=== PATIENT | male | born 1970 | race Caucasian/White ===

== ENCOUNTER 2021-12-14 16:55 | Emergency (ER) | payer BC ==
[~2021-12-14] VITALS: Ht 182.9 cm; Wt 109.0 kg
[2021-12-14] MEDS ORDERED: ASPIRIN CHEWABLE 81 MG TABLET. ONE (17:11)
[2021-12-14] MEDS ORDERED: ONDANSETRON PF 4 MG/2 ML VIAL. IVP ONE (17:15)
[2021-12-14] MEDS ORDERED: MORPHINE SULFATE 2 MG/ML DISP.SYRIN. IV ONE (17:15)
--- NOTE | 2021-12-14 17:16 | PHYS DOC ---
General Adult EDM: Chief Complaint: CHEST PAIN HPI: HPI: 51-year-old male presents with chest pain. Patient has not wanted, complex cardiac history. He has had numerous stents, numerous heart attacks, bypass, and is trying to get on the heart transplant list at . He presents today because he started to have chest pain that started 30 minutes ago. It does from the central chest radiating to his left shoulder and is a sharp stabbing pain. He does state that it feels similar to previous heart attacks. He has all of his care at . The patient took 3 nitroglycerin prior to arrival with no relief. (KATHRYN WELLINGTON DO) Review of Systems: Review of Systems: Constitutional: Denies fever or chills Eyes: Denies change in visual acuity HENT: Denies nasal congestion or sore throat Respiratory: Denies cough or shortness of breath Cardiovascular: Chest pain GI: Denies abdominal pain, nausea, vomiting, bloody stools or diarrhea : Denies dysuria Musculoskeletal: Denies back pain or joint pain Integument: Denies rash Neurologic: Denies headache, focal weakness or sensory changes Endocrine: Denies polyuria or polydipsia Lymphatic: Denies swollen glands Psychiatric: Denies depression or anxiety (KATHRYN WELLINGTON DO) Current Medications: Current Meds: Current Medications Medications (Trade) Dose Ordered Sig/Alethea Start Time Stop Time Status Last Admin Dose Admin Aspirin (Aspirin Chewable) 81 mg STK-MED ONCE 12/14/21 17:11 12/14/21 17:11 DC (KATHRYN WELLINGTON DO) Physical Exam: PE: Constitutional: Well developed, well nourished, obese, no acute distress, non- toxic appearance. [] HENT: Normocephalic, atraumatic, bilateral external ears normal, oropharynx moist, no oral exudates, nose normal. [] Eyes: PERRLA, EOMI, conjunctiva normal, no discharge. [] Neck: Normal range of motion, no tenderness, supple, no stridor. [] Cardiovascular: Heart rate regular rhythm, no murmur [] Lungs & Thorax: Bilateral breath sounds clear to auscultation [] Abdomen: Bowel sounds normal, soft, no tenderness, no masses, no pulsatile masses. [] Skin: Warm, dry, no erythema, no rash. [] Back: No tenderness, no CVA tenderness. [] Extremities: No tenderness, no cyanosis, no clubbing, ROM intact, no edema. [] Neurologic: Alert and oriented X 3, normal motor function, normal sensory function, no focal deficits noted. [] Psychologic: Affect normal, judgement normal, mood concerned. [] (KATHRYN WELLINGTON DO) EKG: EKG: [] (KATHRYN WELLINGTON DO) Radiology/Procedures: Radiology/Procedures: [] (KATHRYN WELLINGTON DO) Heart Score: C/O Chest Pain: Yes HEART Score for Chest Pain: HEART Score for Chest Pain Response (Comments) Value History Moderately Suspicious 1 ECG Nonspecific Repolarizatio 1 Age >45 - < 65 1 Risk Factors >3 Risk Factors or Hx CAD 2 Total 5 Risk Factors: Risk Factors: DM, Current or recent (<one month) smoker, HTN, HLP, family history of CAD, obesity. Risk Scores: Score 0 - 3: 2.5% MACE over next 6 weeks - Discharge Home Score 4 - 6: 20.3% MACE over next 6 weeks - Admit for Clinical Observation Score 7 - 10: 72.7% MACE over next 6 weeks - Early Invasive Strategies (KATHRYN WELLINGTON DO) Course & Med Decision Making: Course & Med Decision Making Pertinent Labs and Imaging studies reviewed. (See chart for details) The patient has factor V. He is fully anticoagulated with Brilinta and Eliquis. I will not give him aspirin. EKG shows no ST elevation or depression. His heart score is a 5. Given his extensive history, even if all of his labs are normal the patient should be admitted for observation at a minimum. I will contact . I talked with the transfer center and they do not have any telemetry beds. The patient's labs are still pending. If he needs to go to the [facility] or ICU, they may have space. I am signing patient out to my colleague Dr. Aparicio at 1800. [] (KATHRYN WELLINGTON DO) Course & Med Decision Making Patient care handed off to me at checkout pending chest pain work-up and disposition. Patient awake alert and oriented in no acute distress with normal heart rate, normal blood pressure and no respiratory distress. Initial laboratory analysis notable for slightly elevated D-dimer. Initial EKG with a rate of 62, QRS of 96, QTc of 400, paced, does not meet STEMI criteria. Initial troponin normal. Chest x-ray and CT of the chest not concerning. Patient allergic to contrast so PE study deferred. Upon reassessment to repeat EKG, r epeat troponin and pain assessment patient stated that he was feeling well and just wanted to sign out AMA and go home and would go to either tonight or tomorrow as this is where his cardiology team is. Had a long discussion with patient and family witnessed by ED nurse discussing the risks of this including but not limited to increased pain, nausea, CO, CVA, aortic pathology, syncope and falls, short-term or long-term disability and . Both patient and patient's verbalized understanding of these risks and wanted to sign out AMA. Advised to come back to the emergency department immediately with new or concerning symptoms that we discussed and also follow-up on Thursday morning first thing with his cardiology team if he does not return to an ED. (NARA APARICIO MD) Dragon Disclaimer: Dragon Disclaimer: This electronic medical record was generated, in whole or in part, using a voice recognition dictation system. (KATHRYN WELLINGTON DO) Departure Departure: Impression: Primary Impression: Chest pain Additional Impression: Elevated d-dimer Disposition: HOME / SELF CARE / HOMELESS Condition: STABLE Referrals: PCP,UNKNOWN (PCP) JACKY ROLLINS MD Patient Instructions: Chest Pain (Nonspecific) Additional Instructions: Thank you for coming into the emergency department [facility] and allowing us to take care of you. Please read the attached information very carefully to go over some of the things we discussed. Your initial EKG and troponin was not suggestive of CO at this time. All of your laboratory analysis initially was unremarkable except for a slightly elevated D-dimer. Your chest x-ray and CT of your chest were unremarkable. Given your history, it was recommended that she stay in the hospital for continued evaluation, treatment and disposition to inpatient care. You decided to sign out AGAINST MEDICAL ADVICE. We discussed the risks of this including significant pain, nausea, worsening of what ever condition is causing your chest pain at this time, heart attack, stroke, blood clot, short-term or long-term disability, fainting and falls injuring her head on blood thinners, and . We discussed this in front of your family and both of you were in agreement, that she wanted to leave AGAINST MEDICAL ADVICE and would follow-up with your doctors as soon as you can. 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 Please return to the nearest emergency department immediately with any of the new or concerning symptoms that we discussed. KATHRYN WELLINGTON DO Dec 14, 2021 17:16 NARA APARICIO MD Dec 14, 2021 19:37
--- NOTE | 2021-12-14 17:25 | EKG ---
[address] [address] Test Date: 2021-12-14 Test Time: 17:02:50 Pat Name: JADIEL CARABALLO Department: Room: Gender: M Trap Operator: DUNCAN : 1970 Requested By: KATHRYN WELLINGTON Order Number: [id number] Reading MD: Sylvester Westbrook MD Measurements Intervals [place] Rate: 62 P: 44 IA: 150 QRS: -69 QRSD: 96 T: -21 QT: 392 QTc: 400 Interpretive Statements SINUS RHYTHM NON-SPECIFIC ST/T CHANGES Electronically Signed On 12-16-2021 10:14:05 SENIOR COST ACCOUNTANT by Sylvester Westbrook MD
--- NOTE | 2021-12-14 17:40 | RAD ---
EXAMINATION: Chest radiograph. VIEWS: 2 images single AP view of the chest COMPARISON: None INDICATION:51 years, Male, chest pain. FINDINGS: Left chest single lead cardiac pacing device appears in normal position. Median sternotomy wires are intact. Post CABG changes. Heart size and pulmonary vasculature is within normal limits. No focal con solidation. No pleural effusion or pneumothorax. No acute osseous process. IMPRESSION: No acute cardiopulmonary process. Electronically signed by: Kenny Paiz DO (12/14/2021 5:38 PM) [facility]
[2021-12-14 17:45] LABS: BASO # 0.1 x10^3/uL (0.0-0.2); BASO % 1 % (0-3); EOS # 0.3 x10^3/uL (0.0-0.7); EOS % 5 % (0-3); HEMATOCRIT 44.9 % (39.0-53.0); HEMOGLOBIN 14.7 g/dL (13.0-17.5); LYMPH # 1.9 x10^3/uL (1.0-4.8); LYMPH % 31 % (24-48); MEAN CORPUSCULAR HEMOGLOBIN 27 pg (25-35); MEAN CORPUSCULAR HGB CONC 33 g/dL (31-37); MEAN CORPUSCULAR VOLUME 83 fL (79-100); MONO # 0.8 x10^3/uL (0.0-1.1); MONO % 12 % (0-9); NEUT # 3.2 x10^3uL (1.8-7.7); NEUT % 51 % (31-73); PLATELET COUNT 198 x10^3/uL (140-400); RED BLOOD COUNT 5.42 x10^6/uL (4.30-5.70); RED CELL DISTRIBUTION WIDTH 13.9 % (11.5-14.5); WHITE BLOOD COUNT 6.3 x10^3/uL (4.0-11.0)
[2021-12-14] MEDS ORDERED: PROMETHAZINE 25 MG TABLET. PO ONE (17:45)
[2021-12-14 17:50] LABS: GFR 78.8; POTASSIUM 4.3 mmol/L (3.5-5.1)
[2021-12-14 17:56] LABS: ALBUMIN 4.2 g/dL (3.4-5.0); ALBUMIN/GLOBULIN RATIO 1.3 (1.0-1.7); TOTAL BILIRUBIN 0.7 mg/dL (0.2-1.0); TOTAL PROTEIN 7.4 g/dL (6.4-8.2)
[2021-12-14] MEDS ORDERED: MORPHINE SULFATE 4 MG/ML DISP.SYRIN. IV ONE (18:30)
[2021-12-14] MEDS ORDERED: MORPHINE SULFATE 4 MG/ML DISP.SYRIN. ONE (18:35)
[2021-12-14 19:25] VITALS: BP 137/98
--- NOTE | 2021-12-14 19:26 | RAD ---
Exam Date: 12/14/2021 6:[address] THORAX WO Indication: Reason: CP, allergic to contrast, Thoracic aorta? / Spl. Instructions: / History: . TECHNIQUE: CT scan of the chest was performed without intravenous contrast. One or more of the [facility] dose reduction techniques were utilized: *Automated exposure control (AEC) *Adjustment of mA and/or kV according to patient size *Use of iterative reconstruction technique *CT scan done according to ALARA, or ALARA/IMAGE GENTLY FINDINGS: The central airways are patent. There is no focal consolidation, pleural effusion or pneumothorax. Calcified granulomas are seen in the lungs. The visualized thyroid gland is within normal limits. No lymphadenopathy is seen. Calcified mediastinal lymph nodes are noted. Aorta is normal in caliber with atherosclerotic calcifications. The heart is normal in size without pericardial effusion. Coronary artery calcifications are present . Images of the upper abdomen demonstrate cholecystectomy clips. Degenerative changes are seen in the spine. IMPRESSION: Normal thoracic caliber aorta with calcifications. Electronically signed by: Isaak Becker MD (12/14/2021 7:23 PM) [id number]
== END 2021-12-14 19:32 | disposition home or self-care (01) ==
LOC: ER 16:55
DX: R07.89 Other chest pain (principal); R79.1 Abnormal coagulation profile
CPT/HCPCS: 36415; 71045; 71250; 80053; 83735; 83880; 84484; 85025; 85379; 85610; 85730; 93005; 96374; 96376; 99285; J2270; Q0169

== ENCOUNTER 2022-01-30 14:32 | Emergency (ER) | payer MEDICARE ==
[~2022-01-30] VITALS: Ht 182.9 cm; Wt 109.0 kg
[2022-01-30] MEDS ORDERED: ASPIRIN CHEWABLE 81 MG TABLET. PO ONE (14:45)
--- NOTE | 2022-01-30 14:47 | PHYS DOC ---
Past History Additional Past Medical Histor: PTSD, 15 STENTS Past Surgical History: Other Additional Past Surgical Histo: STENT PLACEMENT X 15, CABG Alcohol Use: None General Adult EDM: Chief Complaint: CHEST PAIN HPI: HPI: 51-year-old male presents with chest pain. Patient's pain started while he was walking around the [place] 45 minutes prior to arrival. The patient took 3 nitros without relief. The chest pain is an 8 out of 10 tightness that radiates to the left shoulder and jaw. He has diaphoresis, mild shortness of breath, and nausea. The patient has an extensive cardiac history and states this feels like his previous heart attacks. His most recent stent was placed at . The patient has factor V Leiden but is on Xarelto and Brilinta. He is allergic to NSAIDs but is able to take aspirin. He did not take one prior to arrival. The patient is taking all of his medications as prescribed. Review of Systems: Review of Systems: Constitutional: Denies fever or chills Eyes: Denies change in visual acuity HENT: Denies nasal congestion or sore throat Respiratory: shortness of breath Cardiovascular: Chest pain GI: Nausea. Denies abdominal pain, vomiting, bloody stools or diarrhea : Denies dysuria Musculoskeletal: Denies back pain or joint pain Integument: Denies rash Neurologic: Denies headache, focal weakness or sensory changes Endocrine: Denies polyuria or polydipsia Lymphatic: Denies swollen glands Psychiatric: Denies depression or anxiety Allergies: Allergies: Allergies Coded Allergies Type Severity Reaction Last Updated Verified Iodinated Contrast Media Allergy Unknown 12/14/21 Yes amoxicillin Allergy Unknown 12/14/21 Yes atorvastatin Allergy Unknown 12/14/21 Yes bee venom protein (honey bee) Allergy Unknown 12/14/21 Yes buspirone Allergy Unknown 12/14/21 Yes clavulanic acid Allergy Unknown 12/14/21 Yes haloperidol Allergy Unknown 12/14/21 Yes ibuprofen Allergy Unknown 12/14/21 Yes indomethacin Allergy Unknown 12/14/21 Yes lamotrigine Allergy Unknown 12/14/21 Yes lisinopril Allergy Unknown 12/14/21 Yes lithium Allergy Unknown 12/14/21 Yes metoclopramide Allergy Unknown 12/14/21 Yes nortriptyline Allergy Unknown 12/14/21 Yes ondansetron Allergy Unknown 12/14/21 Yes prochlorperazine Allergy Unknown 12/14/21 Yes quetiapine Allergy Unknown 12/14/21 Yes sertraline Allergy Unknown 12/14/21 Yes simvastatin Allergy Unknown 12/14/21 Yes trimethobenzamide Allergy Unknown 12/14/21 Yes valproic acid Allergy Unknown 12/14/21 Yes varenicline Allergy Unknown 12/14/21 Yes Physical Exam: PE: Constitutional: Well developed, well nourished, obese, no acute distress, non- toxic appearance. [] HENT: Normocephalic, atraumatic, bilateral external ears normal, oropharynx moist, no oral exudates, nose normal. [] Eyes: PERRLA, EOMI, conjunctiva normal, no discharge. [] Neck: Normal range of motion, no tenderness, supple, no stridor. [] Cardiovascular: Heart rate 84, regular rhythm, no murmur [] Lungs & Thorax: Bilateral breath sounds clear to auscultation [] Abdomen: Bowel sounds normal, soft, no tenderness, no masses, no pulsatile masses. [] Skin: Central chest scar from open heart surgery [] Back: No tenderness, no CVA tenderness. [] Extremities: No tenderness, no cyanosis, no clubbing, ROM intact, no edema. [] Neurologic: Alert and oriented X 3, normal motor function, normal sensory function, no focal deficits noted. [] Psychologic: Affect normal, judgement normal, mood concerned. [] EKG: EKG: Sinus rhythm, rate 84, leftward axis, no obvious ST elevation or depression, low-voltage. [] Radiology/Procedures: Radiology/Procedures: [] Impressions: CLINICAL INDICATION: Chest pain on exertion COMPARISON: Chest radiograph 12/14/2021 TECHNIQUE: AP view of the chest FINDINGS: There are surgical changes of median sternotomy and coronary artery stents. A single lead AICD is unchanged. The heart is normal in size. Lungs are well-expanded and clear. No pleural effusion or pneumothorax. IMPRESSION: No acute cardiopulmonary abnormality. Electronically signed by: Rosemarie Osorio MD (01/30/2022 3:19 PM) [id number] DICTATED AND SIGNED BY: ROSEMARIE OSORIO MD DATE: 01/30/22 1516 CC: KATHRYN WELLINGTON DO; PCP,UNKNOWN ~ Heart Score: C/O Chest Pain: Yes HEART Score for Chest Pain: HEART Score for Chest Pain Response (Comments) Value History Moderately Suspicious 1 ECG Nonspecific Repolarizatio 1 Age >45 - < 65 1 Risk Factors >3 Risk Factors or Hx CAD 2 Troponin < Normal Limit 0 Total 5 Risk Factors: Risk Factors: DM, Current or recent (<one month) smoker, HTN, HLP, family history of CAD, obesity. Risk Scores: Score 0 - 3: 2.5% MACE over next 6 weeks - Discharge Home Score 4 - 6: 20.3% MACE over next 6 weeks - Admit for Clinical Observation Score 7 - 10: 72.7% MACE over next 6 weeks - Early Invasive Strategies Course & Med Decision Making: Course & Med Decision Making Pertinent Labs and Imaging studies reviewed. (See chart for details) The patient's EKG shows anteverted QRS in leads II and III. This is likely chronic from his previous disease. He also has Q waves in V5 V6. His initial troponin is negative. We will repeat it at 2 hours. His labs are significant for a blood sugar of 240 and a BNP of 663. The patient's BNP is tightly controlled due to his CHF and multivessel coronary artery disease. He is already on oral Bumex and other diuretics. He tells me that when his level gets much above 100 they increase his diuretics. I will give him 2 mg of Bumex IV in the ED. The patient's heart score indicates patient should be admitted for trending and observation. Assuming his second troponin is not markedly elevated, we will admit him for further troponin trending and CHF management. I spoke with Dr. Enriquez and he has accepted the patient for admission. [] Dragon Disclaimer: Chan Disclaimer: This electronic medical record was generated, in whole or in part, using a voice recognition dictation system. Departure Departure: Impression: Primary Impression: Chest pain Additional Impressions: Coronary artery disease CHF (congestive heart failure) Disposition: ADMITTED INPATIENT Admitting Physician: Debby Enriquez Condition: STABLE Referrals: PCP,UNKNOWN (PCP) KATHRYN WELLINGTON DO Jan 30, 2022 14:47
[2022-01-30 15:21] LABS: BASO # 0.1 x10^3/uL (0.0-0.2); BASO % 1 % (0-3); EOS % 0 % (0-3); HEMATOCRIT 46.1 % (39.0-53.0); LYMPH % 23 % (24-48); MEAN CORPUSCULAR HEMOGLOBIN 27 pg (25-35); MEAN CORPUSCULAR HGB CONC 33 g/dL (31-37); MEAN CORPUSCULAR VOLUME 82 fL (79-100); MONO # 0.8 x10^3/uL (0.0-1.1); MONO % 9 % (0-9); NEUT # 5.8 x10^3uL (1.8-7.7); NEUT % 67 % (31-73); PLATELET COUNT 202 x10^3/uL (140-400); RED BLOOD COUNT 5.63 x10^6/uL (4.30-5.70); RED CELL DISTRIBUTION WIDTH 14.8 % (11.5-14.5); WHITE BLOOD COUNT 8.6 x10^3/uL (4.0-11.0)
--- NOTE | 2022-01-30 15:21 | RAD ---
EXAM: XR CHEST 1V 01/30/2022 3:11 PM CLINICAL INDICATION: Chest pain on exertion COMPARISON: Chest radiograph 12/14/2021 TECHNIQUE: AP view of the chest FINDINGS: There are surgical changes of median sternotomy and coronary artery stents. A single lead AICD is unchanged. The heart is normal in size. Lungs are well-expanded and clear. No pleural effusio n or pneumothorax. IMPRESSION: No acute cardiopulmonary abnormality. Electronically signed by: Rosemarie Osorio MD (01/30/2022 3:19 PM) [id number]
[2022-01-30 15:30] LABS: CALCIUM 9.3 mg/dL (8.5-10.1); GFR 78.8; POTASSIUM 3.8 mmol/L (3.5-5.1)
[2022-01-30] MEDS ORDERED: MORPHINE SULFATE 4 MG/ML DISP.SYRIN. IV ONE ×2 (15:30→17:15)
[2022-01-30 15:39] LABS: ALBUMIN/GLOBULIN RATIO 1.1 (1.0-1.7); TOTAL BILIRUBIN 0.5 mg/dL (0.2-1.0); TOTAL PROTEIN 7.6 g/dL (6.4-8.2)
[2022-01-30] MEDS ORDERED: PROMETHAZINE 25 MG TABLET. PO ONE (16:00)
[2022-01-30] MEDS ORDERED: diphenhydrAMINE 50 MG/ML VIAL IVP ONE (16:15)
[2022-01-30] MEDS ORDERED: BUMETANIDE 1 MG/4 ML VIAL. IVP STA (16:39)
[2022-01-30] MEDS ORDERED: NITROGLYCERIN SUBLINGUAL 0.4 MG BOTTLE OF 25. SL PRN (17:15)
[2022-01-30] MEDS ORDERED: HYDROmorphone PF 1 MG/ML DISP.SYRIN IVP ONE (18:15)
[2022-01-30 18:26] LABS: COLOR,URINE COLORLESS
[2022-01-30 18:27] LABS: BACTERIA,URINE 0 /HPF (0-FEW); CLARITY,URINE CLEAR; GLUCOSE,URINE NEG (NEG); NITRITE,URINE NEG (NEG); RBC,URINE 0 /HPF (0-2); SQUAMOUS EPITHELIAL CELL,UR FEW /LPF; UROBILINOGEN,URINE 0.2 mg/dL (0.2 mg/dL); WBC,URINE OCC /HPF (0-4)
[2022-01-30] MEDS ORDERED: CARV25TA2 PO (19:20)
[2022-01-30] MEDS ORDERED: APIX5TAB3 PO (19:22)
[2022-01-30] MEDS ORDERED: BUME2TAB3 PO (19:27)
[2022-01-30] MEDS ORDERED: LORazepam 1 MG TABLET PO ONE (19:30)
[2022-01-30] MEDS ORDERED: EZET10TA20 PO (19:31)
[2022-01-30] MEDS ORDERED: SPIR25TA PO (19:33)
[2022-01-30] MEDS ORDERED: SACU1TAB PO (19:39)
[2022-01-30] MEDS ORDERED: INSU100V SQ (19:44)
[2022-01-30] MEDS ORDERED: INSU100I13 SQ (19:44)
[2022-01-30] MEDS ORDERED: LORA-254 PO ×2 (19:44)
[2022-01-30] MEDS ORDERED: OXYC10TA PO (19:48)
[2022-01-30] MEDS ORDERED: PRAV40TA2 PO (19:48)
[2022-01-30] MEDS ORDERED: MELA10CA PO (19:48)
[2022-01-30] MEDS ORDERED: BUTO10SP NS (19:53)
[2022-01-30] MEDS ORDERED: TIZA4TAB8 PO (19:53)
[2022-01-30] MEDS ORDERED: INSULIN LISPRO 300 UNITS/3 ML VIAL. SQ SCH (20:00)
[2022-01-30] MEDS ORDERED: VALE500C PO (20:01)
[2022-01-30] MEDS ORDERED: TICA90TA PO (20:01)
[2022-01-30] MEDS ORDERED: ARIP20TA5 PO (20:01)
[2022-01-30] MEDS ORDERED: PARO40TA61 PO (20:01)
[2022-01-30] MEDS ORDERED: OMEP40CA7 PO (20:01)
[2022-01-30] MEDS ORDERED: MULT-289 PO (20:01)
[2022-01-30] MEDS ORDERED: TURM538C PO (20:01)
[2022-01-30] MEDS ORDERED: BUTORPHANOL TARTRATE NS SCH (20:15)
[2022-01-30] MEDS ORDERED: LORazepam 1 MG TABLET PO PRN (20:15)
--- NOTE | 2022-01-30 20:34 | EKG ---
[address] [address] Test Date: 2022-01-30 Test Time: 14:38:45 Pat Name: JADIEL CARABALLO Department: Room: ED [place] [address] Gender: M Print Line Inspector: : 1970 Requested By: KATHRYN WELLINGTON Order Number: [id number] Reading MD: Sylvester Westbrook MD Measurements Intervals [place] Rate: 84 P: 26 PA: 138 QRS: -67 QRSD: 94 T: -16 QT: 352 QTc: 419 Interpretive Statements SINUS RHYTHM LAD CONSIDER LATERAL INFARCT Electronically Signed On 02-17-2022 10:54:10 CDT by Sylvester Westbrook MD
[2022-01-30] MEDS ORDERED: tiZANidine 4 MG TABLET. PO SCH (21:00)
[2022-01-30] MEDS ORDERED: VALERIAN ROOT PO SCH (21:00)
[2022-01-30] MEDS ORDERED: EZETIMIBE 10 MG TABLET PO SCH (21:00)
[2022-01-30] MEDS ORDERED: oxyCODONE IR 5 MG TABLET PO SCH (21:00)
[2022-01-30] MEDS ORDERED: LORazepam 1 MG TABLET PO SCH (21:00)
[2022-01-30 21:10] VITALS: BP 143/104
[2022-01-31] MEDS ORDERED: APIXABAN 5 MG TABLET. PO SCH (07:00)
[2022-01-31] MEDS ORDERED: CARVEDILOL 12.5 MG TABLET PO SCH (08:00)
[2022-01-31] MEDS ORDERED: INSULIN LISPRO 300 UNITS/3 ML VIAL. SQ SCH (08:00)
[2022-01-31] MEDS ORDERED: TICAGRELOR 90 MG TABLET. PO SCH (09:00)
[2022-01-31] MEDS ORDERED: TURMERIC ROOT EXTRACT 1053 MG PO SCH (09:00)
[2022-01-31] MEDS ORDERED: BUMETANIDE 1 MG TABLET PO SCH (09:00)
[2022-01-31] MEDS ORDERED: SPIRONOLACTONE 25 MG TABLET PO SCH (09:00)
[2022-01-31] MEDS ORDERED: SACUBITRIL/VALSARTAN 24/26MG TABLET. PO SCH (09:00)
[2022-01-31] MEDS ORDERED: MULTIVITAMIN with MINERAL TABLET. PO SCH (09:00)
[2022-01-31] MEDS ORDERED: PANTOPRAZOLE 40 MG TABLET. PO SCH (09:00)
[2022-01-31] MEDS ORDERED: MELATONIN 3 MG TABLET PO SCH (21:00)
[2022-01-31] MEDS ORDERED: PARoxetine 20 MG TABLET PO SCH (21:00)
[2022-01-31] MEDS ORDERED: ARIPiprazole 10 MG TABLET PO SCH (21:00)
[2022-01-31] MEDS ORDERED: ATORVASTATIN CALCIUM 10 MG TABLET. PO SCH (21:00)
[2022-01-31] MEDS ORDERED: INSULIN GLARGINE SYRINGE. SQ SCH (21:00)
== END 2022-01-30 21:18 | disposition left against medical advice (07) ==
LOC: ER 14:32 → UNDOADMIN 17:09 → ER HOLD 17:09
DX: I50.9 Heart failure, unspecified (principal); I25.10 Atherosclerotic heart disease of native coronary artery without angina pectoris; R07.89 Other chest pain; Z20.822 Contact with and (suspected) exposure to COVID-19; Z91.041 Radiographic dye allergy status; Z88.1 Allergy status to other antibiotic agents; Z91.030 Bee allergy status; Z88.6 Allergy status to analgesic agent; Z88.8 Allergy status to other drugs, medicaments and biological substances
CPT/HCPCS: 36415; 71045; 80053; 81001; 82947; 83880; 84484; 85025; 87426; 93005; 96372; 96374; 96375; 96376; 99285; C9803; J1170; J1200; J1815; J2270; J3490; U0003